=== PATIENT | female | born 1940 | race Caucasian/White ===

== ENCOUNTER 2021-12-16 08:05 | Inpatient (IN) ==
[2021-12-16] MEDS ORDERED: CeFAZolin Syr 2,000MG/20 ML 2,000 MG/20 ML SYRINGE IVPB ONE (08:33)
[2021-12-16] MEDS ORDERED: *HR* Propofol 200 MG/20 ML VIAL IVP ONE (08:41)
[2021-12-16] MEDS ORDERED: *HR* FentaNYL (PF) 100 MCG/2 ML VIAL ONE (08:41)
[2021-12-16] MEDS ORDERED: Lidocaine -MPF 2% 5 ML VIAL ONE (08:42)
[2021-12-16] MEDS ORDERED: *HR* Rocuronium Bromide 50 MG/5 ML VIAL ONE (08:42)
[2021-12-16] MEDS: Ringers Solution, Lactated 1,000 ML IVC SCH ×2 (08:44→13:23)
[2021-12-16] MEDS ORDERED: *HR* Labetalol 20 MG/4 ML SYRINGE IVP PRN (08:49)
[2021-12-16] MEDS ORDERED: Promethazine 6.25 MG in Water for inj. (sterile) 20 ML IVPB PRN (08:49)
[2021-12-16] MEDS ORDERED: Famotidine 20 MG/2 ML VIAL IVP ONE (08:49)
[2021-12-16] MEDS ORDERED: *HR* OxyCODONE Immed Rel 5 MG TABLET PO PRN (08:49)
[2021-12-16] MEDS ORDERED: Acetaminophen IV 1,000 MG/100 ML BAG IVPB ONE (08:49)
[2021-12-16] MEDS ORDERED: Ondansetron 4 MG/2 ML VIAL IVP PRN ×2 (08:49→15:23)
[2021-12-16] MEDS ORDERED: Sugammadex Sodium 200 MG/2 ML VIAL IV ONE (10:49)
[2021-12-16] MEDS ORDERED: Ondansetron 4 MG/2 ML VIAL ONE (10:52)
[2021-12-16] MEDS ORDERED: *HR* HYDROMORPHONE 2 MG/ML VIAL ONE (11:36)
[2021-12-16] MEDS ORDERED: Ipratropium/Albuterol Neb 3 ML ONE (12:08)
[2021-12-16] MEDS ORDERED: Ipratropium/Albuterol Neb 3 ML IH ONE (12:10)
[2021-12-16] MEDS: *HR* HYDROmorphone (PF) 1 MG/ML SYRINGE IVP PRN ×4 (12:12→12:59)
[2021-12-16] MEDS ORDERED: Ketamine HCL *QUVA* 50mg (1mL) SYRINGE ONE (13:38)
[2021-12-16] MEDS ORDERED: Naloxone 0.4 MG/ML INJ IVP PRN (15:23)
[2021-12-16] MEDS ORDERED: SUMAtriptan succinate 25 MG TABLET PO PRN (15:23)
[2021-12-16] MEDS ORDERED: Dextrose Gel 15 GM/37.5 ML TUBE PO PRN ×2 (15:23)
[2021-12-16] MEDS ORDERED: D5% in Water 1,000 ML IVC PRN (15:23)
[2021-12-16] MEDS ORDERED: *HR* Dextrose 50 % in Water (Syg) 50 ML SYRINGE IVP PRN (15:23)
[2021-12-16] MEDS: Gabapentin 300 MG CAPSULE PO SCH ×2 (16:04→21:07)
[2021-12-16] MEDS: Ketorolac 30 MG/ML VIAL IVP SCH ×2 (16:04→17:27)
[2021-12-16] MEDS: Ipratropium/Albuterol Neb 3 ML IH SCH ×3 (16:05→23:10)
[2021-12-16] MEDS: *HR* Heparin 5,000 UNIT/ML VIAL SQ SCH ×2 (16:07→21:07)
[2021-12-16] MEDS: 0.9 % Sodium Chloride 1,000 ML IVC SCH (16:08)
[2021-12-16] MEDS: *HR* Metformin 500 MG TABLET PO SCH ×2 (17:38→21:10)
[2021-12-16] MEDS: *HR* HYDROcodone/Acet 5/325 mg TABLET PO PRN (17:38)
[2021-12-16] MEDS: Insulin LISPRO 300 UNITS/3 ML VIAL SUBQ SCH ×2 (17:40→20:55)
[2021-12-16] MEDS: Metoprolol 100 MG TABLET PO SCH (21:06)
[2021-12-16] MEDS: Famotidine 20 MG TABLET PO SCH (21:07)
[2021-12-16] MEDS: Sennosides/Docusate Sodium TABLET PO SCH (21:07)
[2021-12-17] MEDS: Ketorolac 30 MG/ML VIAL IVP SCH ×4 (01:30→17:20)
[2021-12-17] MEDS: Ipratropium/Albuterol Neb 3 ML IH SCH ×6 (04:14→22:51)
[2021-12-17] MEDS: *HR* Heparin 5,000 UNIT/ML VIAL SQ SCH ×3 (05:58→22:01)
[2021-12-17] MEDS: 0.9 % Sodium Chloride 1,000 ML IVC SCH (06:05)
[2021-12-17] MEDS: Aspirin 81 MG TAB.CHEW PO SCH (08:05)
[2021-12-17] MEDS: Metoprolol 100 MG TABLET PO SCH ×2 (08:05→22:02)
[2021-12-17] MEDS: *HR* Metformin 500 MG TABLET PO SCH ×2 (08:05→17:22)
[2021-12-17] MEDS: Famotidine 20 MG TABLET PO SCH ×2 (08:05→22:02)
[2021-12-17] MEDS: Sennosides/Docusate Sodium TABLET PO SCH ×2 (08:06→22:02)
[2021-12-17] MEDS: Gabapentin 300 MG CAPSULE PO SCH ×3 (08:06→22:02)
[2021-12-17] MEDS: DilTIAZem CD (24hr) 120 MG CAP.ER.24H PO SCH (08:06)
[2021-12-17] MEDS: hydroCHLOROthiazide 25 MG TABLET PO SCH (08:24)
[2021-12-17] MEDS: Insulin LISPRO 300 UNITS/3 ML VIAL SUBQ SCH ×4 (08:25→21:58)
[2021-12-17 08:58] LABS: Hematocrit 32.5 % (35.3-44.9); Hemoglobin 10.6 g/dL (11.5-15.4); Mean Corpuscular HGB Conc 32.6 g/dL (31.6-35.5); Mean Corpuscular Hemoglobin 26.8 pg (28.0-33.3); Mean Corpuscular Volume 82.3 fL (83.0-100.0); Mean Platelet Volume 11.3 fL (9.4-12.4); Platelet Count 191 K/mcL (140-400); Red Blood Count 3.95 M/mcL (3.82-4.97); Red Cell Distribution Width 15.2 % (11.5-14.5); White Blood Count 9.6 K/mcL (4.3-11.1)
[2021-12-17] MEDS ORDERED: hydroCHLOROthiazide 25 MG TABLET PO SCH (09:00)
[2021-12-17 09:22] LABS: Calcium 8.3 mg/dL (8.6-10.3); Magnesium 1.3 mg/dL (1.6-2.6); Potassium 3.6 mEq/L (3.5-5.1)
[2021-12-17] MEDS: *HR* HYDROcodone/Acet 5/325 mg TABLET PO PRN (11:17)
[2021-12-17 15:41] LABS: Bilirubin,Urine Negative (Negative); Blood,Urine Negative (Negative); Clarity,Urine Clear (Clear); Color,Urine Light-Yellow (Yellow); Glucose,Urine (UA) Normal (Normal); Ketones,Urine Negative (Negative); Leukocyte Esterase,Urine Negative (Negative); Nitrite,Urine Negative (Negative); Protein,Urine Negative (Neg-Trace); Specific Gravity,Urine 1.011 (1.010-1.025); Urobilinogen,Urine Normal (Normal)
[2021-12-18] MEDS: 0.9 % Sodium Chloride 1,000 ML IVC SCH (00:10)
[2021-12-18] MEDS: Ketorolac 30 MG/ML VIAL IVP SCH ×3 (00:10→12:26)
[2021-12-18] MEDS: Ipratropium/Albuterol Neb 3 ML IH SCH ×4 (04:04→16:18)
[2021-12-18] MEDS: *HR* Heparin 5,000 UNIT/ML VIAL SQ SCH (05:48)
[2021-12-18] MEDS: hydroCHLOROthiazide 25 MG TABLET PO SCH (08:03)
[2021-12-18] MEDS: Aspirin 81 MG TAB.CHEW PO SCH (08:03)
[2021-12-18] MEDS: Sennosides/Docusate Sodium TABLET PO SCH (08:03)
[2021-12-18] MEDS: Insulin LISPRO 300 UNITS/3 ML VIAL SUBQ SCH ×2 (08:03→12:00)
[2021-12-18] MEDS: *HR* Metformin 500 MG TABLET PO SCH ×2 (08:03→12:26)
[2021-12-18] MEDS: DilTIAZem CD (24hr) 120 MG CAP.ER.24H PO SCH (08:03)
[2021-12-18] MEDS: Metoprolol 100 MG TABLET PO SCH (08:03)
[2021-12-18] MEDS: *HR* HYDROcodone/Acet 5/325 mg TABLET PO PRN (08:03)
[2021-12-18] MEDS: Gabapentin 300 MG CAPSULE PO SCH (08:03)
[2021-12-18] MEDS: Famotidine 20 MG TABLET PO SCH (08:04)
[2021-12-18 11:19] VITALS: BP 114/48; TEMP 98.7; O2SAT 100
[2021-12-18 13:41] VITALS: PULSE 79
== END 2021-12-18 17:47 | disposition home or self-care (01) | DRG 164 ==
LOC: SAMDAY 08:05 → 2NNU 15:11
PROVIDERS: ADMIT Thoracic Surgery (Cardiothoracic Vascular Surgery); ATTEND Thoracic Surgery (Cardiothoracic Vascular Surgery)